=== PATIENT | male | born 1970 | race American Indian/Alaskan Native ===

== ENCOUNTER 2019-11-15 19:13 | Emergency (ER) | payer SELFPAY ==
[2019-11-15] MEDS ORDERED: ZIPRASIDONE MESYLATE 20 MG VIAL IM ONE (20:31)
[2019-11-15 21:10] LABS: BUN/Creatinine Ratio 25; Blood Urea Nitrogen 25 mg/dL (9-20); Calcium 8.9 mg/dL (8.4-10.2); Hemolysis Index 13
[2019-11-15 21:15] LABS: Basophils # (Auto) 0.1 K/mm3 (0.0-0.1); Basophils % (Auto) 0.6 % (0.0-1.8); Eosinophils # (Auto) 0.3 K/mm3 (0.0-0.4); Eosinophils % (Auto) 2.9 % (0.0-4.3); Hematocrit 44.1 % (35.5-45.6); Hemoglobin 14.9 gm/dl (11.8-15.2); Lymphocytes # (Auto) 1.3 K/mm3 (1.2-5.4); Lymphocytes % (Auto) 14.8 % (13.4-35.0); Mean Corpuscular HGB Conc 34 % (32-34); Mean Corpuscular Volume 95 fl (84-94); Monocytes # (Auto) 0.9 K/mm3 (0.0-0.8); Monocytes % (Auto) 10.1 % (0.0-7.3); Platelet Count 144 K/mm3 (140-440); Red Blood Count 4.63 M/mm3 (3.65-5.03); Red Cell Distribution Width 14.6 % (13.2-15.2)
[2019-11-15 21:28] LABS: Bilirubin,Urine NEG (Negative); Blood,Urine NEG (Negative); Color,Urine Yellow (Yellow); Protein,Urine <15 mg/dL mg/dL (Negative); RBC,Urine < 1.0 /HPF (0.0-6.0); WBC,Urine < 1.0 /HPF (0.0-6.0)
[2019-11-15 21:37] LABS: Amphetamine Screen,Urine PRESUMPTIVE NEGATIVE; Benzodiazepines Screen,Urine PRESUMPTIVE NEGATIVE; Cannabinoid Screen,Urine PRESUMPTIVE NEGATIVE; Cocaine Screen,Urine PRESUMPTIVE NEGATIVE; Methadone Screen,Urine PRESUMPTIVE NEGATIVE; Opiate Screen,Urine PRESUMPTIVE NEGATIVE
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
[2019-11-16] MEDS ORDERED: diphenhydrAMINE 50 MG/ML VIAL IM ONE (03:19)
[2019-11-16] MEDS ORDERED: HALOPERIDOL LACTATE 5 MG/1 ML INJ IM ONE (03:19)
[2019-11-16] MEDS ORDERED: LORazepam 2 MG/ML VIAL IM ONE (03:20)
[2019-11-16] MEDS: hydrOXYzine PAMOATE 25 MG CAP PO SCH ×2 (09:53→14:11)
[2019-11-16] MEDS ORDERED: DIVALPROEX DR 500 MG TAB PO SCH (10:00)
--- NOTE | 2019-11-16 10:11 | Consultation ---
History of Present Illness - Reason for Consult Consult date: 11/16/19 Reason for consult: Outbursts, agitation - History of Present Psychiatric Illness The patient's medical record was reviewed and the patient's progress was discussed with the nursing staff. The nurse caring for the patient states the patient has not shown any aggressive behaviors nor any signs of SI/HI/AV hallucinations. Mark Huerta is a 48y/o male patient who was [facility] the ER [facility] for agitation and outbursts. During my interview with the patient today, he was lying in bed awake. He is a/o x 3. He is calm, cooperative and polite. He is asking for a cigarette and an extra breakfast tray. The patient states he had "been off meds for about two weeks." He says "I was pissed off because I couldn't get a cigaret so I probably said some things I shouldn't." He denies hallucinations of any kind. He also denies SI/HI. He says "I told you I was just pissed off." He laughs and says "I'm over it now." He describes his mood as "pretty good if I can get another tray and milk." He says, "I tried to commit suicide about 8 years ago but will never do that again." He says he has a history of "schizophrenia" and states he "could not remember meds." The patient denies any illicit drug use or alcohol. He says he smokes "a pack per day." The patient is asking about being discharged. He says "I was told I can go back to my penitentiary. I like it there and feel safe there." PAST PSYCHIATRIC HISTORY: Diagnoses: Schizophrenia Suicide attempts or Self-harm behavior: Once 8 years ago Prior psychiatric hospitalizations: Once Substance Abuse history: Denies Previous psychiatric medications tried: Unable to recall Outpatient treatment: Yes PAST MEDICAL HISTORY: Family Psychiatric History: None reported or documented SOCIAL HISTORY Marital Status: Living Arrangements: alf Employment Status: Unemployed Access to guns/weapons: Denies Education: 12th History of Abuse: none reported Legal History: Denies REVIEW OF SYSTEMS Constitutional: Negative for weight loss ENT: Negative for stridor Respiratory: Negative for cough or hemoptysis All other systems reviewed and are negative MENTAL STATUS EXAMINATION General Appearance: Dressed appropriately Behavior: Calm and cooperative, polite Mood: "pretty good" Affect and affective range: Congruent with stated mood Thought Process: goal directed Speech: normal tone and pace Suicidal Ideation: Denies Homicidal Ideation: Denies Hallucinations: Denies Delusions: None elicited Insight and Judgment: Limited Memory/Cognition: Limited Attention: Normal Orientation: Alert, oriented x 3 Assessment Schizophrenia PLAN d/c 1013 Scripts Saúl ISAAC 1000mg po BID Olanzapine 10mg po daily Hydroxizine 25mg po TID Sitter: Defer to primary Medical: Per primary Disposition: Do not recommend acute inpatient treatment. The patient may discharge home once medically clear. He understands that if SI/HI or any feelin gs of endangerment he is to seek immediate assistance, including the crisis hotline, [facility], ER. The carcass trimmer to give the patient outpatient resources, cognitive behavioral therapy and safety plan. The patient to follow up in 7 to 14 days upon discharge with outpatient psych or primary Will follow sign off. Thank you for this consult Medications and Allergies Allergies Allergy/AdvReac Type Severity Reaction Status Date / Time Penicillins Allergy Hives Verified 11/15/19 19:19 Home Medications Medication Instructions Recorded Confirmed Last Taken Type Divalproex Dr [Saúl ISAAC] 1,000 mg PO BID 11/16/19 11/16/[address] [Saúl ISAAC] 1,000 mg PO BID #120 tablet 11/16/19 Unknown Rx OLANzapine [ZyPREXA] 10 mg PO 11/16/19 Unknown History OLANzapine [Zyprexa] 10 mg PO DAILY #30 tablet 11/16/19 Unknown Rx hydrOXYzine PAMOATE [Vistaril] 25 mg PO TID 11/16/19 11/16/19 Unknown History hydrOXYzine PAMOATE [Vistaril] 25 mg PO TID #90 capsule 11/16/19 Unknown Rx Active Meds: Active Medications Divalproex Sodium (Saúl Isaac) 1,000 mg PO BID [facility] Last Admin: 11/16/19 09:53 Dose: 1,000 mg Documented by: Hydroxyzine Pamoate (Vistaril) 25 mg PO TID [facility] Last Admin: 11/16/19 09:53 Dose: 25 mg Documented by: Olanzapine (Zyprexa) 10 mg PO DAILY [facility] Last Admin: 11/16/19 09:53 Dose: 10 mg Documented by: Mental Status Exam - Vital signs Last Vital Signs Temp 98.4 F 11/16/19 02:05 Pulse 80 11/16/19 02:05 Resp 18 11/16/19 02:05 BP 110/60 11/16/19 02:05 Pulse Ox 99 11/16/19 02:05 Results Result Diagrams: 11/15/19 19:30 11/15/19 19:30 Abnormal lab results 11/15/19 11/15/19 11/15/19 Range/Units 19:30 19:30 19:30 MCV (84-94) fl [place] % (Auto) (0.0-7.3) % [place] # (Auto) (0.0-0.8) K/mm3 Seg Neutrophils % (40.0-70.0) % Chloride 97.3 L (98-107) mmol/L BUN 25 H (9-20) mg/dL Salicylates < 0.3 L (2.8-20.0) mg/dL Acetaminophen 5.0 L (10.0-30.0) ug/mL Valproic Acid (50-100) ug/mL 11/15/19 11/15/19 Range/Units 19:30 19:30 MCV 95 H (84-94) fl [place] % (Auto) 10.1 H (0.0-7.3) % [place] # (Auto) 0.9 H (0.0-0.8) K/mm3 Seg Neutrophils % 71.6 H (40.0-70.0) % Chloride (98-107) mmol/L BUN (9-20) mg/dL Salicylates (2.8-20.0) mg/dL Acetaminophen (10.0-30.0) ug/mL Valproic Acid 36.8 L (50-100) ug/mL All other labs normal.
[2019-11-16 12:03] VITALS: BP 134/74
== END 2019-11-16 14:58 | disposition home or self-care (01) ==
LOC: ED 19:13 → EEVIPCON 19:13 → ED 11-16 14:58
DX: F22 Delusional disorders (principal); F23 Brief psychotic disorder; R45.4 Irritability and anger; Z53.29 Procedure and treatment not carried out because of patient's decision for other reasons; Z04.6 Encounter for general psychiatric examination, requested by authority
CPT/HCPCS: 36415; 80048; 80164; 80307; 81001; 85025; 96372; 99284; J1200; J1630; J2060; J3486; Q0177; 80320; G0480